=== PATIENT | male | born 1980 | race Caucasian/White ===

== ENCOUNTER 2018-07-10 23:45 | Emergency (ER) | payer MEDICAID ==
--- NOTE | 2018-07-11 00:18 | Emergency Department Record ---
History of Present Illness - General Chief complaint: Bite Insect/other Stated complaint: TICK BITE Time Seen by Provider: 07/10/18 23:48 Source: Patient Mode of Arrival: Ambulatory Limitations: No limitations - History of Present Illness Initial comments: The patient found a tick imbedded on his head 2 hours ago. He is concerned about getting Lyme disease. He did remove the tick at home. The patient denies any problems. MD complaint: Insect bite/sting, Rash Onset/Timin -: Hour(s) Patient Tetanus UTD (within 5 yrs): No Location: Head Associated symptoms: Denies other symptoms Treatments Prior to Arrival: None - Related Data Previous Rx's Medication Instructions Recorded Doxycycline Monohydrate 100 mg PO ONCE #2 capsule 07/11/18 Allergies Allergy/AdvReac Type Severity Reaction Status Date / Time Penicillins Allergy SHORTNESS Verified 07/10/18 23:53 OF BREATH Travel Screening - Travel/Exposure Within Last 30 Days Have you traveled within the last 30 days?: No - Travel Symptoms Symptom Screening: None Review of Systems Constitutional: Denies: Chills, Fever Eyes: Denies: Eye discharge ENT: Denies: Congestion Respiratory: Denies: Cough, Dyspnea Past Medical History - SOCIAL HISTORY Smoking Status: Former smoker - RESPIRATORY Hx Respiratory Disorders: Yes Hx Sleep Apnea: Yes Hx of CPAP: No - CARDIOVASCULAR Hx Cardio Disorders: No - NEURO Hx Neuro Disorders: No - GI Hx GI Disorders: No - Hx Genitourinary Disorders: No - ENDOCRINE Hx Endocrine Disorders: No - MUSCULOSKELETAL Hx Musculoskeletal Disorders: No - PSYCH Hx Psych Problems: No - HEMATOLOGY/ONCOLOGY Hx Hematology/Oncology Disorders: No Family Medical History Any Significant Family History?: Yes Hx Cancer: Father Physical Exam - General General Appearance: Alert, Oriented x3, Cooperative, No acute distress - Head Head exam: Atraumatic, Normocephalic, Normal inspection, Other (There is a very faint 2 mm circular area where the tick was imbedded on his scalp. It is nontender.) - Eye Eye exam: Normal appearance, PERRL, EOMI - ENT Throat exam: Normal inspection. negative: Tonsillar erythema, Tonsillar exudate - Neck Neck exam: Normal inspection, Full ROM. negative: Tenderness - Neurological Neurological exam: Alert. negative: Motor sensory deficit - Psychiatric Psychiatric exam: negative: Anxious Course Vital Signs 07/10/18 23:55 Temperature 99.8 F H Pulse Rate [ 87 Left] Respiratory 16 Rate Blood Pressure 121/80 [Left Arm] Pulse Ox 98 - Reevaluation(s) Reevaluation #1: I did recheck the patient's Temp and it is 98.7 orally. I did also recommend Doxycycline prophylaxis and the patient did agree. 07/11/18 00:16 Disposition Disposition: Discharge Clinical Impression: Tick bite Qualifiers: Encounter type: initial encounter Qualified Code(s): W57.XXXA - Bitten or stung by nonvenomous insect and other nonvenomous arthropods, initial encounter Disposition: Home, Self-Care Condition: (2) Stable Instructions: Insect Bite or Sting (ED) Additional Instructions: Please take the Doxycycline as directed and please see your doctor for any problems. Prescriptions: Doxycycline Monohydrate 100 mg PO ONCE #2 capsule Forms: Patient Portal Access Time of Disposition: 00:18 Quality - Quality Measures Quality Measures: N/A - Blood Pressure Screening View Details: Yes Does Patient Have Any of the Following: No Blood Pressure Classification: Pre-Hypertensive BP Reading Systolic Measurement: 121 Diastolic Measurement: 80 Screening for High Blood Pressure: < Pre-Hypertensive BP, F/U Documented > [G8950] Pre-Hypertensive Follow-up Interventions: Referral to alternative/primary care provider.
== END 2018-07-11 00:30 | disposition home or self-care (01) ==
LOC: ER 23:45
DX: S00.06XA Insect bite (nonvenomous) of scalp, initial encounter (principal); W57.XXXA Bitten or stung by nonvenomous insect and other nonvenomous arthropods, initial encounter; Y92.009 Unspecified place in unspecified non-institutional (private) residence as the place of occurrence of the external cause
CPT/HCPCS: 99282

== ENCOUNTER 2018-08-19 16:09 | Emergency (ER) | payer MEDICAID, OTHER ==
[2018-08-19] MEDS ORDERED: CLINDAMYCIN 150 MG CAP PO ONE (16:35)
--- NOTE | 2018-08-19 16:41 | Emergency Department Record ---
History of Present Illness - General Chief complaint: Abscess Stated complaint: LUMP ON HIS BREAST Time Seen by Provider: 08/19/18 16:30 Source: Patient Mode of Arrival: Ambulatory Limitations: No limitations - History of Present Illness Initial comments: 37 yo male presents with redness and tenderness adjacent and medial to the right areola of the nipple. No nipple pain or nipple discharge. No axillary tenderness or swelling. No history of the same in the past. The area of tenderness is about 5mm with about 2cm of surrounding erythema. MD complaint: Abscess/boil Onset/Timin -: Days(s) Location: Chest Severity: Moderate Severity scale (1-10): 6 Quality: Aching, Sharp Consistency: Constant Improves with: None Worsens with: Palpation Context: None Associated symptoms: Denies other symptoms Treatments Prior to Arrival: None - Related Data Previous Rx's Medication Instructions Recorded Clindamycin HCl 300 mg PO QID #28 capsule 08/19/18 Allergies Allergy/AdvReac Type Severity Reaction Status Date / Time amoxicillin Allergy HIVES Verified 08/19/18 16:18 Penicillins Allergy SHORTNESS Verified 07/10/18 23:53 OF BREATH Travel Screening - Travel/Exposure Within Last 30 Days Have you traveled within the last 30 days?: No Review of Systems Constitutional: Denies: Chills, Fever, Weakness Eyes: Denies: Eye discharge ENT: Denies: Congestion, Throat pain Respiratory: Denies: Cough, Dyspnea Cardiovascular: Denies: Chest pain Endocrine: Denies: Fatigue Gastrointestinal: Denies: Abdominal pain, Diarrhea, Nausea, Vomiting Genitourinary: Denies: Dysuria, Frequency Musculoskeletal: Denies: Arthralgia, Myalgia Skin: Reports: As per HPI, Change in color Neurological: Denies: Headache Psychiatric: Denies: Anxiety Hematological/Lymphatic: Denies: Easy bleeding, Easy bruising, Swollen glands Past Medical History - SOCIAL HISTORY Smoking Status: Former smoker - RESPIRATORY Hx Respiratory Disorders: Yes Hx Sleep Apnea: Yes Hx of CPAP: No - CARDIOVASCULAR Hx Cardio Disorders: No - NEURO Hx Neuro Disorders: No - GI Hx GI Disorders: No - Hx Genitourinary Disorders: No - ENDOCRINE Hx Endocrine Disorders: No - MUSCULOSKELETAL Hx Musculoskeletal Disorders: No - PSYCH Hx Psych Problems: No - HEMATOLOGY/ONCOLOGY Hx Hematology/Oncology Disorders: No Family Medical History Any Significant Family History?: Yes Hx Cancer: Father Physical Exam - General General Appearance: Alert, Oriented x3, Cooperative, No acute distress Limitations: No limitations - Head Head exam: Atraumatic, Normal inspection - Eye Eye exam: Normal appearance - ENT ENT exam: Normal exam Ear exam: Normal external inspection Nasal Exam: Normal inspection Mouth exam: Normal external inspection - Neck Neck exam: Normal inspection. negative: Lymphadenopathy - Respiratory Respiratory exam: Normal lung sounds bilaterally. negative: Decreased breath sounds, Rhonchi, Wheezes - Cardiovascular Cardiovascular Exam: Regular rate, Normal rhythm, Normal heart sounds - Rectal Rectal exam: Deferred - exam: Deferred - Extremities Extremities exam: Normal inspection, Other (no axillary tenderness or LAD) Image of Full Body: 1 - 2cm of erythema superior and medial to the right nipple and areola. the areola does not seem to be involved. No nipple tenderness or discharge, a pproximately 5mm tender soft nodule, not fluctuant, not consistent with abscess - Neurological Neurological exam: Alert, Oriented X3 - Skin Skin exam: Erythema Course Vital Signs 08/19/18 16:15 Temperature 98.4 F Pulse Rate 96 H Respiratory 20 Rate Blood Pressure 140/87 Pulse Ox 96 - Reevaluation(s) Reevaluation #1: 08/19/18 16:46 Bedside US was used to assess the area. No visible cystic structure or masses visible on bedside US. No signs of abscess. He will be given home care instructions for localized folliculitis. No likely breast cancer or other breast disease. I explained that if it is not resolving an US or surgery consult could be performed. He was placed on Clindamycin and given instructions of followup and return if needed in the next few days if worse 08/19/18 16:49 Disposition Disposition: Discharge Clinical Impression: Folliculitis Disposition: Home, Self-Care Condition: (1) Good Instructions: Folliculitis (ED) Additional Instructions: Clear the area twice daily with a warm bath or shower Return if worse, pain increases, drainage, fever or any other concerns Take the antibiotic as directed Prescriptions: Clindamycin HCl 300 mg PO QID #28 capsule Forms: Patient Portal Access Time of Disposition: 16:43 Quality - Quality Measures Quality Measures: N/A - Blood Pressure Screening Does Patient Have Any of the Following: No Blood Pressure Classification: Pre-Hypertensive BP Reading Systolic Measurement: 140 Diastolic Measurement: 87 Screening for High Blood Pressure: < Pre-Hypertensive BP, F/U Documented > [G8950] Pre-Hypertensive Follow-up Interventions: Referral to alternative/primary care provider.
== END 2018-08-19 16:53 | disposition home or self-care (01) ==
LOC: ER 16:09
DX: L73.8 Other specified follicular disorders (principal); N64.4 Mastodynia; Z87.891 Personal history of nicotine dependence
CPT/HCPCS: 99283

== ENCOUNTER 2018-11-25 19:34 | Emergency (ER) | payer MEDICAID ==
[2018-11-25] MEDS ORDERED: ASPIRIN 81 MG CHEWABLE TABLET PO ONE (19:43)
[2018-11-25] MEDS ORDERED: LORAZEPAM 0.5 MG TABLET PO ONE (19:43)
--- NOTE | 2018-11-25 19:48 | Emergency Department Record ---
History of Present Illness - General Chief Complaint: Chest Pain Stated Complaint: CHEST PAINS Time Seen by Provider: 11/25/18 19:39 Source: Patient Mode of Arrival: Ambulatory Limitations: No limitations - History of Present Illness Initial Comments: 38 yo male presents to ED for evaluation of "chest pressure" that began two hours ago while driving. Patient reports recent numbness that he noticed to the right upper extremity yesterday, has since resolved. Patient denies any symptoms with exertion. Patient denies previous heart or lung problems, denies HTN, DM history. Patient denies calf pain, swelling, h/o DVT, or recent immobilization. Patient does wonder if his symptoms are related to anxiety. MD Complaint: Chest pain Onset/Timin -: Hour(s) Onset: Other (while driving) Pain Location: Substernal Severity: Moderate Quality: Other ("pressure") Consistency: Intermittent Improves With: Nothing Worsens With: Nothing Treatments Prior to Arrival: None - Related Data Home Medications Medication Instructions Recorded Confirmed Last Taken No Home Med [NO HOME MEDS] 11/25/18 11/25/18 Unknown Allergies Allergy/AdvReac Type Severity Reaction Status Date / Time amoxicillin Allergy HIVES Verified 08/19/18 16:18 Penicillins Allergy SHORTNESS Verified 07/10/18 23:53 OF BREATH Review of Systems Constitutional: Denies: Chills, Fever, Malaise, Night sweats Eyes: Denies: Eye discharge, Eye pain ENT: Denies: Congestion, Ear pain, Epistaxis Respiratory: Denies: Cough, Dyspnea Cardiovascular: Reports: Chest pain. Denies: Dyspnea on exertion Endocrine: Denies: Fatigue, Heat or cold intolerance Gastrointestinal: Denies: Abdominal pain, Nausea, Vomiting Genitourinary: Denies: Incontinence, Retention Musculoskeletal: Denies: Arthralgia, Back pain Skin: Denies: Bruising, Change in color Neurological: Reports: Numbness. Denies: Abnormal gait, Confusion, Headache, Tingling, Tremors Psychiatric: Reports: Anxiety Hematological/Lymphatic: Denies: Anemia, Blood Clots Past Medical History - SOCIAL HISTORY Smoking Status: Former smoker - RESPIRATORY Hx Respiratory Disorders: Yes Hx Sleep Apnea: Yes Hx of CPAP: No - CARDIOVASCULAR Hx Cardio Disorders: No - NEURO Hx Neuro Disorders: No - GI Hx GI Disorders: No - Hx Genitourinary Disorders: No - ENDOCRINE Hx Endocrine Disorders: No - MUSCULOSKELETAL Hx Musculoskeletal Disorders: No - PSYCH Hx Psych Problems: No - HEMATOLOGY/ONCOLOGY Hx Hematology/Oncology Disorders: No Family Medical History Hx Cancer: Father Physical Exam - General General Appearance: Alert, Oriented x3, Cooperative, Mild distress, Anxious Limitations: No limitations - Head Head exam: Atraumatic, Normocephalic, Normal inspection Head exam detail: negative: Abrasion, Contusion, Harley's sign, General tenderness, Hematoma, Laceration - Eye Eye exam: Normal appearance. negative: Conjunctival injection, Periorbital swelling, Periorbital tenderness, Scleral icterus - ENT Ear exam: negative: Auricular hematoma, Auricular trauma Nasal Exam: negative: Active bleeding, Discharge, Dried blood, Foreign body Mouth exam: negative: Drooling, Laceration, Muffled voice, Tongue elevation - Neck Neck exam: Normal inspection. negative: Meningismus, Tenderness - Respiratory Respiratory exam: Normal lung sounds bilaterally. negative: Respiratory distress, Rhonchi, Stridor, Wheezes - Cardiovascular Cardiovascular Exam: Normal rhythm, Normal heart sounds, Tachycardia - GI/Abdominal GI/Abdominal exam: Soft. negative: Distended, Rebound, Rigid, Tenderness - Rectal Rectal exam: Deferred - exam: Deferred - Extremities Extremities exam: Normal inspection. negative: Pedal edema, Tenderness - Back Back exam: Denies: CVA tenderness (R), CVA tenderness (L) - Neurological Neurological exam: Alert, Normal gait, Oriented X3 - Psychiatric Psychiatric exam: Anxious - Skin Skin exam: Normal color. negative: Abrasion Type of lesion: negative: abrasion Course - Reevaluation(s) Reevaluation #1: 11/25/18 19:44 EKG: Sinus tachycardia 106 Normal axis, normal intervals No acute ST-T wave changes Reevaluation #2: 11/25/18 20:18 Laboratory studies were reviewed and appear grossly unremarkable for an acute process. D-Dimer is negative for PE. The patient was deemed to be low-risk for cardiac disease based on the patients history and evaluation in the ED, HEART Score was applied and found to be 1. As a result, repeat Troponin in 3-hours appears appropriate and if negative for myocardial injury, the patient may be discharged home with appropriate outpatient follow-up for further evaluation. Reevaluation #3: 11/25/18 21:27 CXR: No acute process Patient was updated on all results, pulse in 80's on re-examination, patient appears more calm. Awaiting 3-hour Troponin at this time for disposition. Reevaluation #4: 11/25/18 23:10 Patient's repeat Troponin appears negative for myocardial injury. Patient appears stable for discharge at this time. Medical Decision Making - Lab Data Result diagrams: 11/25/18 19:40 11/25/18 19:40 Disposition Disposition: Discharge Clinical Impression: Atypical chest pain Disposition: Home, Self-Care Condition: (2) Stable Instructions: Chest Pain (ED) Additional Instructions: Return to ED if your symptoms worsen or if you have any concerns. Follow-up with your family doctor in 3-5 days as directed. Forms: Patient Portal Access Time of Disposition: 23:11 Quality - Quality Measures Quality Measures: N/A - Blood Pressure Screening Does Patient Have Any of the Following: No Blood Pressure Classification: Pre-Hypertensive BP Reading Systolic Measurement: 134 Diastolic Measurement: 83 Screening for High Blood Pressure: < Pre-Hypertensive BP, F/U Documented > [G8950] Pre-Hypertensive Follow-up Interventions: Referral to alternative/primary care provider.
[2018-11-25 19:51] LABS: ABSOLUTE NEUTROPHIL COUNT 4.64; BASO % 0.4 % (0-6); EOS % 1.2 % (0-6); GRAN % 56.5 % (47-80); HEMATOCRIT 38.7 % (42.0-52.0); HEMOGLOBIN 12.9 gm/dl (14.0-18.0); LYMPH % 34.1 % (16-45); MEAN CELL VOLUME 87.8 fl (81-97); MEAN CORPUSCULAR HGB CONC 33.3 g/dl (32-36); MEAN PLATELET VOLUME 8.9 fl (7.4-10.4); MONO % 7.8 % (0-9); PLATELET COUNT 199 K/uL (130-400); RED BLOOD COUNT 4.41 M/uL (4.40-5.70); RED CELL DISTRIBUTION WIDTH 12.6 % (11.5-14.5); WHITE BLOOD COUNT W/O DIFF 8.2 K/uL (4.2-12.2)
[2018-11-25 19:52] LABS: MEAN CORPUSCULAR HEMOGLOBIN 29.2 pg (27-33)
[2018-11-25 20:00] LABS: BLOOD UREA NITROGEN 11 mg/dL (6-20); CREATININE 0.9 mg/dL (0.7-1.2); EST GLOMERULAR FILTRATION RATE > 60 mL/min; TOTAL PROTEIN 7.1 g/dL (6.6-8.7)
[2018-11-25 20:02] LABS: GLUCOSE,RANDOM 135 mg/dL (74-109)
[2018-11-25 20:05] LABS: ALB/GLOB RATIO 1.7 (1.1-1.8); ALBUMIN 4.5 g/dL (4.0-5.0); ALKALINE PHOSPHATASE 63 U/L (40-129); ALT/SGPT 20 U/L (<41); AST/SGOT 18 U/L (10.0-50.0)
--- NOTE | 2018-11-27 20:08 | RADIOLOGY REPORT ---
EXAM: CHEST 2 VIEWS HISTORY: CHEST TIGHTNESS. TECHNIQUE: Two views of the chest are provided without comparison examinations. FINDINGS: The cardiomediastinal silhouette is within normal limits for size and contour. Ambika appear unremarkable. There is no radiographic evidence of a focal infiltrate, pleural effusion, or pneumothorax. IMPRESSION: NO RADIOGRAPHIC EVIDENCE OF AN ACUTE INTRATHORACIC PROCESS. JOB NUMBER: [id number] MTDD
== END 2018-11-25 23:20 | disposition home or self-care (01) ==
LOC: ER 19:34
DX: R07.89 Other chest pain (principal); Z87.891 Personal history of nicotine dependence
CPT/HCPCS: 71046; 80053; 84484; 85025; 85379; 93005; 93010; 99284